=== PATIENT | male | born 1965 | race Two or more races ===

== ENCOUNTER → 2018-08-27 17:32 | Outpatient (CLI) | payer BC, SELFPAY ==
--- NOTE | 2018-08-27 18:15 | MRI_ITS ---
STUDY: MRI LUMBAR SPINE WITHOUT CONTRAST REASON FOR EXAM: Male, 52 years old. Acquired spondylolisthesis. Low back and right leg pain. TECHNIQUE: Standardized fat and water weighted pulse sequences were obtained in the sagittal and axial planes. COMPARISON: None FINDINGS: T12-L1: Normal endplates. Disc dehydration. Normal bilateral facet joints. Normal central canal and bilateral lateral recesses. Normal bilateral intervertebral neural foramina. Normal lumbar lordosis. There is no substantial scoliosis. Normal conus medullaris that terminates at the T12 level. L1-2: Normal endplates. Disc dehydration and mild disc space narrowing. There is a mild, noncompressive spondylotic bar.. Normal bilateral facet joints. Normal central canal and bilateral lateral recesses. Normal bilateral intervertebral neural foramina. L2-3: Normal endplates. Disc dehydration. There is a moderate-sized right paracentral disc extrusion measuring approximately 0.7 x 0.6 x 1.3 cm. This effaces the right lateral recess and displaces the traversing right L3 nerve root. There is mild caudal migration. Normal bilateral facet joints. Normal bilateral intervertebral neural foramina. L3-4: Normal endplates. Disc dehydration. Normal bilateral facet joints. Normal central canal and bilateral lateral recesses. Normal bilateral intervertebral neural foramina. L4-5: Normal endplates. Disc dehydration and marked disc space narrowing. There is 6 mm retrolisthesis. No spondylolysis. Normal bilateral facet joints. Normal central canal and bilateral lateral recesses. Normal bilateral intervertebral neural foramina. L5-S1: Normal endplates. There is marked disc space narrowing. There is 6 mm anterolisthesis. Normal bilateral facet joints. Normal central canal and bilateral lateral recesses. There is moderate foraminal stenosis, greater on the right due to anterolisthesis and spurring. Normal visualized sacral ala. Normal visualized paraspinous soft tissue structures. MRI/Spine Lumbar (Routine) IMPRESSION: 1. L2-3 right paracentral disc extrusion with caudal migration. 2. Mild retrolisthesis at L4-5 and L5-S1. 3. L5-S1 foraminal stenosis. 4. Degenerative changes are detailed above. Electronically Signed: Celina Mckenzie MD at 21:01 EST Tel , Service support ,
== END ==
PROVIDERS: Family Provider Family Medicine; PCP Family Medicine; Referring Provider Family Medicine; Visit Provider Family Medicine
DX: M43.10 Spondylolisthesis, site unspecified (principal)
CPT/HCPCS: 72148

== ENCOUNTER → 2018-09-09 17:22 | Outpatient (CLI) | payer BC, SELFPAY ==
--- NOTE | 2018-09-09 17:24 | RAD_ITS ---
STUDY: X-RAY - RIGHT HAND, ATTENTION FOURTH FINGER REASON FOR EXAM: Male, 53 years old. Trauma TECHNIQUE: 3 view(s) of the finger were obtained. COMPARISON: None. FINDINGS: Normal metacarpal head. Normal metacarpophalangeal joint. Normal proximal phalanx. Normal middle phalanx. Normal distal phalanx. Normal proximal interphalangeal joint. Normal distal interphalangeal joint. There is a small sesamoid bone along the volar aspect of the proximal interphalangeal joint. There is soft tissue swelling of fourth digit. There is NO mass. RAD/Finger(s) Min 2 Views IMPRESSION: There is NO fracture or dislocation. Electronically Signed: Richard Lancaster MD at 7:42 EST , Service support ,
== END ==
PROVIDERS: Family Provider Family Medicine; PCP Family Medicine; Referring Provider Family Medicine; Visit Provider Family Medicine
DX: M20.011 Mallet finger of right finger(s) (principal)
CPT/HCPCS: 73140

== ENCOUNTER 2018-09-16 12:00 | Outpatient (RCR) | payer BC, SELFPAY ==
--- NOTE | 2018-08-11 15:50 | HP.PTEVAL ---
Patient's Visit Information JUAN ABREU is a 52 year old M referred to Physical Therapy by Mark Baugh MD with a diagnosis of Spinal Stenosis. Date of Evaluation: 08/05/18 Physical Therapist: Chavez Espinoza DPT - Visit Plan Frequency: 2x /Week Duration: 4 Weeks Plan: Start with slight flexion mobility, core stability exercises, hip flexor stretching and HS stretching. May use modalities if needed. [place] HEP as tolerated. - Subjective Findings: Pt is here today for his initial evaluation with diagnosis of low back pain with spinal stenosis at L4/L5. Pt. reports having increased pain in anterior thigh for ~6 weeks. Pt. reports feeling tingling and pain in R thigh and knee at times. Pt. reports increased pain with sitting, standing, walking, driving. He has some pain in the morning, but is not worse in AMs. Pt. reports no weakness in BLEs and no giving out of LEs. Pt. has no saddle region pain. 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 He has no heavy lifting with his job. He typically works out in this gym, but does has been staying away from running due to pain. Pt. is hopeful to reduce symptoms in order to getback to all recreational and work related actvitieis without limitations. - Pain R anterior thigh Pain Intensity (Out of 10): 5 Pain Intensity Range: 2, 8 - Objective POSTURE: PT. has increased anterior pelvic tilt. Rounded shoulders, normal iliac crest heights. PALPATION: Pt. has mild increase in symptoms with spring testing to L4/L5 with hypombility. NO pain at gluteal region, no pain throughout anterior R thigh. NEURO: Normal sensation and DTR thoughout BLES. Pt. is able to rise on heels and toes without limitations. ROM: LUMBAR SPINE: Flexion min loss mild increase nW, Ext mod loss increase NW, SB nil loss bilat NE, rotation nil loss bilat NE. Pt. has tight HS and tight hip flexors bilateraly. Normal hip ROM with rest of testing. MMT: Pt. has 5/5 strength throughout bilateral LEs, except 4/.5 hip abd bilat and poor+ core strength. GAIT: Pt. has minimal hip extension during gait, minimal arm swing. Pt. has increased anterior pelvic tilt. STAIRS: Pt. has normal step pattern and BHR with stairs, no visible weakness. - Special Tests L/S Slump test left side: Negative L/S Slump test right side: Negative L/S Left Straight Leg Raise: Negative L/S Right Straight Leg Raise: Negative Lumbar Standing: Flexion - Mechanical Response: No effect Lumbar Standing: Flexion - Symptoms During Testing: No effect Lumbar Standing: Flexion - Symptoms After Testing: No effect Comments:: limited motion Lumbar Standing: Extension - Mechanical Response: No effect Lumbar Standing: Extension - Symptoms During Testing: Increases Lumbar Standing: Extension - Symptoms After Testing: Worse Comments:: limited motion Lumbar Standing: Right Side Glides - Mechanical Response: No effect Lumbar Standing: Right Side [place] - Symptoms During Testing: No effect Lumbar Standing: Right Side [place] - Symptoms After Testing: No effect Lumbar Standing: Left Side [place] - Mechanical Response: No effect Lumbar Standing: Left Side [place] - Symptoms During Testing: No effect Lumbar Standing: Left Side [place] - Symptoms After Testing: No effect Lumbar Lying: Flexion - Mechanical Response: No effect Lumbar Lying: Flexion - Symptoms During Testing: Decreases Lumbar Lying: Flexion - Symptoms After Testing: Centralized Lumbar Lying: Extension - Mechanical Response: No effect Lumbar Lying: Extension - Symptoms During Testing: Increases Lumbar Lying: Extension - Symptoms After Testing: No worse Lumbar Static: Slouched Sit - Mechanical Response: No effect Lumbar Static: Slouched Sit - Symptoms During Testing: No effect Lumbar Static: Slouched Sit - Symptoms After Testing: No effect Lumbar Static: Sitting Erect - Mechanical Response: No effect Lumbar Static: Sitting Erect - Symptoms During Testing: No effect Lumbar Static: Sitting Erect - Symptoms After Testing: No effect Lumbar Static:Lying Prone in Extension - Mechanical Response: No effect Lumbar Static: Lying Prone in Extension - Sx During Testing: Increases Lumbar Static: Lying Prone in Extension - Sx After Testing: Worse - Goals Goal 1:: Pt. to be I with HEP. Goal Time Frame: 4-6 Weeks Goal 2:: Pt. to have increased lumbar ROM by 25% in all directions without increase in symptoms. Goal Time Frame: 4-6 Weeks Goal 3:: Pt. to increased core and BLE strength by 1/2 grade througout effected musculature increasing stability at lumbar spine. Goal Time Frame: 4-6 Weeks Goal 4:: Pt. to have no pain in RLE with sitting and walking allowing for increased quality of life. Goal Time Frame: 4-6 Weeks Goal 5:: Pt. to complete all recreational gym work outs without increase in symptoms. - Rehabilitation Potential Physical Therapy Diagnosis: Pt. has signs and symptoms of radiating pain down his RLE steming from his lumbar spine. Pt. did not have a directional preference, but did have relief with pelvic tilting and single leg to chest this date. Pt. would benefit from PT to increase core stability in order to maintain netural spine with all functional mobility to reduce stress applied to posterior aspect of lumbar spine. Rehabilitation Potential: Good - Anticipated Interventions Patient/Client Instruction: Educate patient on: Condition, Plan of Care, Risk Factors, Benefits of Fitness Program For the Purpose of:: To improve decision making, To facilitate caregiver knowledge, To improve self management, To prevent re-injury, To improve ability to perform tasks related to life management, To improve tolerance to ADL's Therapeutic Exercise to Include: Strength training, Power training, Endurance training, Postural training, Flexibilty training, Passive ROM, Active ROM, Dynamic Lumbar Stabilization, [place] Exercises For the Purpose of:: To decrease pain, To decrease swelling/inflammation, To increase ROM, To improve nutrient delivery to tissue, To improve muscle performance and motor function, To improve ability to perform ADL's, To improve health of tissue, To decrease soft tissue restriction, To increase flexibility/ROM, To improve endurance Manual Therapy Techniques to Include: Mobilization, Passive ROM, Functional dry needling, Soft tissue mobilization For the Purpose of:: To decrease pain, To decrease swelling/inflammation, To increase ROM, To improve nutrient delivery to tissue, To improve muscle performance and motor function IF ES: Yes Cryotherapy (ice pack, ice massage): Yes Thermo therapy (hot pack): Yes Ultrasound (thermal/non thermal): Yes Pelvic traction supine: Yes For the Purpose of:: To decrease pain, To decrease swelling/inflammation, To increase ROM Thank you for the opportunity to evaluate your patient. For Medicare and Medicare HMO plans, please review the plan of care and approve it. It will need to be FAXED BACK to us at [phone] for Medicare purposes. For Medicare only, by signing this I certify the plan of care. Please let me know if there are questions or concerns regarding this plan of care. Physician Signature: Date:
--- NOTE | 2019-01-24 15:55 | HP.PTDCSUM ---
HP - PT D/C Summary It has been my pleasure to treat JUAN ABREU under orders from Mark Baugh MD, for the diagnosis of Spinal Stenosis for a total of 8 visit(s). Discharge Date: Please see the following information for a summary of their discharge status. - Subjective Subjective: Pain is worse ..today,mainly in lumbar. Plan for epidural injectio. Better past 2weeks - Pain R anterior thigh Pain Intensity (Out of 10): 2 - Overall Improvement % Improvement: 40 - Objective Objective/Function: POSTURE: decrease lordosis. PALPATION: unremarkable. NEURO: denies parathesia/tingling. LUMBAR ROM: flexion min/mod loss decrease curve ,extension mod/severe loss. MMT: quads/hams 4/5,hip flexion 4-/5,ankle 4/5 - Goals Goal 1:: Pt. to be I with HEP. Goal 2:: Pt. to have increased lumbar ROM by 25% in all directions without increase in symptoms. Goal 3:: Pt. to increased core and BLE strength by 1/2 grade througout effected musculature increasing stability at lumbar spine. Goal 4:: Pt. to have no pain in RLE with sitting and walking allowing for increased quality of life. Goal 5:: Pt. to complete all recreational gym work outs without increase in symptoms. - Plan Plan: PLAN FOR EPIDURAL INJECTIONS - D/C Information If there are questions or concerns regarding this patient's physical therapy, please feel free to call me at [phone]. Thank you for the referral of this patient. Sincerely, Angel Verduzco, PT, Cert MDT, OCS
== END 2018-09-16 19:00 | disposition home or self-care (01) ==
LOC: PT 12:00
PROVIDERS: Family Provider Family Medicine; PCP Family Medicine; Referring Provider Family Medicine; Visit Provider Family Medicine
DX: M48.07 Spinal stenosis, lumbosacral region (principal); R20.2 Paresthesia of skin; G57.00 Lesion of sciatic nerve, unspecified lower limb
CPT/HCPCS: 97110; 97140; 97161; 97530

== ENCOUNTER → 2024-06-27 | Outpatient (CLI) | payer BC, SELFPAY ==
--- NOTE | 2024-06-27 11:55 | RAD_ITS ---
STUDY: X-RAY - LUMBAR SPINE REASON FOR EXAM: Male, 58 years old. Radiculopathy, lumbar region TECHNIQUE: 3 view(s) of the lumbar spine were obtained. COMPARISON: None FINDINGS: Normal lumbar lordosis. Mild dextroscoliosis centered at L1. 5 mm of anterolisthesis of L5 on S1. There is multilevel endplate spondylosis of the lumbar vertebrae. There is multi-level degenerative disc disease with multi-level disc space narrowing. There is multilevel facet hypertrophy. The soft tissue structures are unremarkable. RAD/Lumbar Spine 2 or 3 Views IMPRESSION: 5 mm of anterolisthesis of L5 on S1 possibly from spondylolisthesis. Mild dextroscoliosis with diffuse degenerative disc disease. Electronically Signed: Jude Beard MD at 14:10 EST ,
== END | disposition home or self-care (01) ==
PROVIDERS: PCP Family Medicine; Referring Provider Anesthesiology Pain Medicine; Visit Provider Anesthesiology Pain Medicine
DX: M54.16 Radiculopathy, lumbar region (principal)
CPT/HCPCS: 72100